=== PATIENT | male | born 1945 | race American Indian/Alaskan Native ===

== ENCOUNTER 2021-07-10 22:54 | Emergency (ER) | payer MEDICARE ==
--- NOTE | 2021-07-11 02:59 | Emergency Department Report ---
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 Patient also had history of hypertension. Patient presented to the ER complaining of sudden onset of right vision. Patient denied any weakness, numbness or tingling sensation. No headache or speech problem. No ataxia. Patient stated the symptoms started approximately 5 PM. Stroke protocol immediately initiated and patient moved to CT for stat CT brain without contrast. Dr. Richardson, stroke telemetry neurologist immediately consulted and examined the patient. He stated that patient is not a TPA candidate and he is advised to do a CTA brain and CTA neck and get stat dock coordinator consult. -: Sudden Presenting Symptoms: Present: Blurred/Loss of Vision Place: home Context: sudden onset Associated Symptoms: denies other symptoms - Related Data Allergies/Adverse Reactions: Allergies Allergy/AdvReac Type Severity Reaction Status Date / Time No Known Allergies Allergy Unverified 07/11/21 02:12 ED Review of Systems ROS: Stated complaint: RIGHT EYE BLURRED Other details as noted in HPI Comment: All other systems reviewed and negative Constitutional: denies: chills, fever Respiratory: denies: cough, shortness of breath Cardiovascular: denies: chest pain ED Past Medical Hx - Past Medical History Previous Medical History?: Yes Hx Hypertension: Yes Hx CVA: Yes Hx Diabetes: Yes (DOESN'T USE INSULIN) - Surgical History Past Surgical History?: Yes Additional Surgical History: RIGHT ARM SURGERY ED Neuro Physical Exam - General Limitations: No Limitations General appearance: alert, in no apparent distress Suspected Stroke: Yes - Head Head exam: Present: atraumatic, normocephalic, normal inspection - Eye Eye exam: Present: normal appearance, PERRL, EOMI. Absent: periorbital swell ing, periorbital tenderness - ENT ENT exam: Present: normal exam, normal orophraynx, mucous membranes moist - Neck Neck exam: Present: normal inspection, full ROM. Absent: tenderness, meningismus - Respiratory Respiratory exam: Present: normal lung sounds bilaterally - Cardiovascular Cardiovascular Exam: Present: regular rate, normal rhythm, normal heart sounds - GI/Abdominal GI/Abdominal exam: Present: soft, normal bowel sounds. Absent: distended, tenderness, guarding, rebound, rigid - Extremities Exam Extremities exam: Present: normal inspection, full ROM, normal capillary refill. Absent: tenderness - Back Exam Back exam: Present: normal inspection, full ROM. Absent: CVA tenderness (R), CVA tenderness (L) - Neurological Exam Neurological exam: Present: alert, oriented X3, CN II-XII intact, normal gait, reflexes normal. Absent: abnormal gait, motor sensory deficit - NIHSS Assessment Interval: Baseline 1a. Level of Consciousness: alert/keenly responsive 1b. LOC Questions: answers both correctly 1c. LOC Commands: performs tasks correctly 2. Best Gaze: normal 3. Visual: partial hemianopia 4. Facial Palsy: normal symmetrical movement 5b. Motor Arm Right: no drift 5a. Motor Arm Left: no drift 6a. Motor Leg Left: no drift 6b. Motor Leg Right: no drift 7. Limb Ataxia: absent 8. Sensory: normal 9. Best Language: no aphasia 10. Dysarthria: normal 11. 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 Patient also had history of hypertension. Patient presented to the ER complaining of sudden onset of right vision. Patient denied any weakness, numbness or tingling sensation. No headache or speech problem. No ataxia. Patient stated the symptoms started approximately 5 PM. Stroke protocol immediately initiated and patient moved to CT for stat CT brain without contrast. Dr. Richardson, stroke telemetry neurologist immediately consulted and examined the patient. He stated that patient is not a TPA candidate and he is a dvised to do a CTA brain and CTA neck and get stat dock coordinator consult. CTA showed left M1 occlusion. I discussed the patient again with Dr. Richardson, he advised to contact interventional neurologist. I discussed the patient with Dr. Evette Pulido, he stated that patient does not need interventional neurologist and advised to consult dock coordinator. I discussed the patient with Dr.Yan Nathan, from [facility] and she accepted the patient to be transfer to [place] for further management. Critical Care Time: Yes Critical care time in (mins) excluding proc time.: 45 Critical care attestation.: If time is entered above; I have spent that time in minutes in the direct care of this critically ill patient, excluding procedure time. ED Disposition Clinical Impression: Acute loss of vision Disposition: 51 HOSPICE/MEDICAL FACILITY Is pt being admited?: No Condition: Stable
[2021-07-11 03:24] LABS: Hematocrit 35.7 % (35.5-45.6); Hemoglobin 11.9 gm/dl (11.8-15.2); INR 0.96 (0.87-1.13); Mean Corpuscular HGB Conc 33 % (32-34); Mean Corpuscular Volume 83 fl (84-94); Partial Thromboplastin Time 35.4 Sec. (24.2-36.6); Platelet Count 247 K/mm3 (140-440); Red Cell Distribution Width 15.8 % (13.2-15.2)
[2021-07-11 03:25] LABS: Albumin 3.4 g/dL (3.9-5); Calcium 8.4 mg/dL (8.4-10.2)
[2021-07-11 07:44] VITALS: BP 156/82
--- NOTE | 2021-07-12 07:55 | Cat Scan Report ---
CT head without contrast INDICATION : CODE STROKE PROTOCOL!!! STROKE-LIKE SYMPTOMS.. TECHNIQUE: Axial imaging performed from the skull apex through the skull base without the use of con trast. All CT scans at this location are performed using CT dose reduction for ALARA by means of aut omated exposure control. COMPARISON: None FINDINGS: Parenchyma: Small focus of low density at the right kamara radiata (series 2, image 18). No mass or h emorrhage. Diffuse cerebral atrophy. Ventricles: Ventricles are normal in size and appear symmetric. Soft tissues: Soft tissues including the orbits appear normal. Bones: No acute osseous abnormality. Sinuses: Sinuses and mastoid air cells are clear. IMPRESSION: 1. Small focus of low density at the right kamara radiata of indeterminate age. 2. Diffuse cerebral atrophy. 3. No mass or hemorrhage. This report cannot be called due to nonfunctioning telephone service at [facility]. Signer Name: Dewey Kramer MD Signed: 07/10/2021 11:53 PM Workstation Name: [id number]
--- NOTE | 2021-07-12 07:56 | Cat Scan Report ---
CT ANGIO HEAD INDICATION / CLINICAL INFORMATION: 75 years Male; POST-CODE STROKE PROTOCOL!!! STROKE-LIKE SYMPTOMS.. TECHNIQUE: Thin cut axial images obtained through the head and neck during IV bolus contrast administ ration. Sagittal, coronal, and 3 plane MIP reconstructions performed by the technologist. NASCET type criteria used evaluate stenoses. Automated exposure control utilized for radiation reduction purpose s. . CTA HEAD COMPARISON: None available. FINDINGS: INTERNAL CAROTID ARTERIES: Focal areas of moderate to high-grade narrowing narrowing are seen in the cavernous portion portions of the both internal carotid arteries, secondary to atherosclerotic diseas e. Findings on the right are more prevalent than the left. VERTEBROBASILAR SYSTEM: Left vertebral artery is dominant when compared with the right. The nondomina nt right vertebral artery largely terminates in the right PICA territory. Focal area of moderate narr owing is seen in the left vertebral artery, related to atherosclerotic disease. Segment of mild narrowing is seen in the proximal basilar artery. DISTAL BRANCHES: The M1 segment on the left is largely occluded. However, there are some component of distal MCA branches seen on the left, presumably related to collateral flow. Note, no significant lo ss of bermudez/white differentiation is appreciated-findings may be on a long-standing basis. The A1 segment on the right is hypoplastic-majority of blood flow to the anterior cerebral circulatio n is via the left internal carotid artery. Multiple areas of demj-rp-yicylnhr narrowing are seen in t he anterior cerebral artery branches on the right. The P1 segment on the left is hypoplastic. Multiple areas of moderate narrowing are seen in both post erior cerebral arteries - right greater than left. ANEURYSM: None identified. ADDITIONAL FINDINGS: Remainder of the surrounding soft tissues are grossly normal. IMPRESSION: 1. M1 segment occlusion on the left. 2. Multiple areas of significant narrowing seen, as described above, including the internal carotid a rteries, related to atherosclerotic disease. CTA NECK COMPARISON: None FINDINGS: ARCH: Normal aortic arch branching suggested. CAROTID ARTERIES: A portion of the proximal right common carotid artery is not visualized because of dense contrast in the right subclavian/brachiocephalic veins. The right common carotid artery is othe rwise widely patent. Atherosclerotic disease is seen in the origin of the right internal carotid artery, although no hemod ynamically significant narrowing is seen. The left common carotid artery is widely patent throughout. Atherosclerotic disease is seen at the origin of the left internal carotid artery, resulting in borde rline hemodynamically significant narrowing - recommend correlation with carotid Doppler analysis. VERTEBRAL ARTERIES: Left dominant vertebral system seen. 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 Collateral flow from the thyrocervical jacquelyn nk reconstitutes the proximal left vertebral artery, which demonstrates areas of mild narrowing throu ghout, related to atherosclerotic disease. Multiple areas of long segment moderate narrowing are seen throughout the nondominant right vertebral artery proximally, while more focal areas of axqm-pw-yacvrkaq narrowing are seen in the mid to dista l, nondominant right vertebral artery. ADDITIONAL FINDINGS: High-grade osseous foraminal narrowing is seen on the left at C4-5 from uncinate hypertrophy. Mild to moderate foraminal narrowing seen on the left at this level. The patient is edentulous. IMPRESSION: 1. Borderline hemodynamically significant narrowing suggested in the proximal left internal carotid a rtery-recommend correlation with carotid Doppler analysis. 2. Significant narrowing in the posterior circulation, as described above. Signer Name: Joshua Malik MD, III Signed: 07/11/2021 12:18 AM Workstation Name: [id number]
== END 2021-07-11 08:04 | disposition hospice, inpatient (51) ==
LOC: ED 22:54
DX: H54.7 Unspecified visual loss (principal); I10 Essential (primary) hypertension; E11.9 Type 2 diabetes mellitus without complications; Z98.890 Other specified postprocedural states; Z86.73 Personal history of transient ischemic attack (TIA), and cerebral infarction without residual deficits
CPT/HCPCS: 36415; 70450; 70496; 70498; 80053; 85027; 85610; 85730; 96374; 99285; J3490; Q9967